=== PATIENT | female | born 1950 | race Caucasian/White ===

== ENCOUNTER 2021-10-24 10:47 | Emergency (ER) | payer MEDICARE, SELFPAY ==
[2021-10-24 11:30] VITALS: BP 146/73; PULSE 78; RESP 21; TEMP 37.3; O2SAT 97; BMI 35.9
--- NOTE | 2021-10-24 11:52 | HMH.EDUTC ---
[facility] [place] Impression: Viral syndrome, Exposure to COVID-19 virus Pharyngitis Qualifiers: Pharyngitis/tonsillitis etiology: unspecified etiology Qualified Code(s): J02.9 - Acute pharyngitis, unspecified Disposition: Home, Self-Care Condition on Discharge: Good Instructions: DI for Pharyngitis/Tonsillopharyngitis -- Adult, DI for COVID-19 (Suspected or Confirmed ), Preventing the Spread of Coronavirus Discharge Instructions Additional Instructions: Drink plenty of fluids. Take tylenol or ibuprofen for pain or fever. Take the medications as directed. Follow up with your regular doctor. GO TO THE ER FOR ANY WORSENING SYMPTOMS Quarantine until you know the results of your covid-19 test. Notify your school or workplace of your results and follow their instructions regarding return to work/school. Prescriptions: Benzonatate [Benzonatate 100mg cap] 100 mg PO TIDP PRN #30 cap PRN Reason: Cough Transmission Status: Received by [facility] predniSONE [Prednisone 20mg Tab] 20 mg PO BID 3 Days #6 tab Transmission Status: Received by [facility] Azithromycin [Z-Ajay 250mg Tab*] 250 mg PO UD DOSE PK #6 tab Transmission Status: Received by [facility] Referrals: Cassidy Paez [Primary Care Provider] - Time of Disposition: 12:21 Medical Decision Making - Medical Records Medical records reviewed: No: I reviewed the patient's medical records. - Cesar Inquiry Pt receiving controlled substance: No Vital Signs: 10/24/21 11:30 10/24/21 12:25 Temperature 99.2 F 99.2 F Temperature Source Oral Pulse Rate 78 Pulse Rate [Right Brachial] 78 Respiratory Rate 21 21 Blood Pressure 146/73 H Blood Pressure [Right Arm] 146/73 H Blood Pressure Mean [Right Arm] 97 Blood Pressure Source [Right Arm] Automatic Cuff Blood Pressure Position [Right Arm] Sitting 02 Sat by Pulse Oximetry 97 Oxygen Delivery Method Room Air - Lab Data Lab results reviewed: Yes: I reviewed the patient's lab results. Lab Results 10/24/21 11:33: Group A Strep Rapid Negative Orders (Tests/Meds): ORDERS Category Date Time Status Covid-19 Nasal PCR ([facility]) Routine Lab 10/24/21 11:32 Received Strep Screen Confirmation Stat Micro 10/24/21 11:33 [place] [facility] [place] - General Stated complaint: covid exposure, symptoms, loss of voice Time Seen by Provider: 10/24/21 11:52 Mode of Arrival: Ambulatory Source of Information: Patient Limitations: No Limitations Description of Symptoms (Recalled from Triage Doc. by RN): PATIENT C/O FEVER, SORE THROAT, CONGESTION, HEADACHE, AND COUGH SINCE YESTERDAY. HAD COVID LAST WEEK HEENT Symptoms (Recalled from RN notes): Yes Resp Symptoms (Recalled from RN notes): Yes Skin Symptoms (Recalled from RN notes): No MS Symptoms (Recalled from RN notes): No Functional Status (Recalled from RN notes): WNL - History of Present Illness Provider Complaint: She states that for the past 3 days she has had a scratchy sore throat, a dry cough, voice hoarsness and she has felt bad. She denies fever/chills/body ache/chest congestion. Her had covid-19 last week and she has been around him a lot. She has been fully vaccinated for covid and she has had a flu shot this season. - Related Data Home Medications Medication Instructions Recorded Confirmed Aspirin [Aspirin 81mg chewable 81 mg PO DAILY 10/24/21 10/24/21 tab] Losartan Potassium [Cozaar 50mg 50 mg PO DAILY 10/24/21 10/24/21 Tablets] Previous Rx's Medication Instructions Recorded Azithromycin [Z-Ajay 250mg Tab*] 250 mg PO UD DOSE PK #6 tab 10/24/21 Benzonatate [Benzonatate 100mg 100 mg PO TIDP PRN #30 cap 10/24/21 cap] predniSONE [Prednisone 20mg 20 mg PO BID 3 Days #6 tab 10/24/21 Tab] Allergies Allergy/AdvReac Type Severity Reaction Status Date / Time No Known Allergies Allergy Verified 10/24/21 11:48 - Worker's Comp Is this a Wo
[2021-10-24 11:58] LABS: Strep Scrn Group A (Rapid) Negative (Negative)
[2021-10-24 12:25] VITALS: BP 146/73; PULSE 78; RESP 21; TEMP 37.3; O2SAT 97
== END 2021-10-24 12:28 | disposition home or self-care (01) ==
PROVIDERS: Emergency Provider Nurse Practitioner Family; PCP Family Medicine
DX: U07.1 COVID-19 (principal); J02.9 Acute pharyngitis, unspecified
CPT/HCPCS: G0463; 87430; 99203; C9803; U0003; U0005

== ENCOUNTER 2023-12-04 16:51 | Emergency (ER) | payer MEDICARE, SELFPAY ==
[2023-12-04 17:45] VITALS: BP 161/73; PULSE 76; RESP 20; TEMP 37.2; O2SAT 96; BMI 35.9
[2023-12-04 18:01] LABS: Influenza A, PCR Not Detected (NotDetected); Influenza B, PCR Not Detected (NotDetected)
--- NOTE | 2023-12-04 18:10 | EXP.UTC ---
Discharge Plan Prescriptions Prescriptions: No Action losartan 50 MG tablet 50 mg PO DAILY aspirin 81 MG tablet,chewable 81 mg PO DAILY azithromycin 250 MG tablet 250 mg PO UD DOSE PK Qty: 6 0RF Rx Instructions: Take two (2) tablets today, then one (1) tablet days #2 thru #5 prednisone 20 MG tablet 20 mg PO BID 3 Days Qty: 6 0RF benzonatate 100 MG capsule 100 mg PO TIDP PRN (Reason: Cough) Qty: 30 0RF Referrals Follow up/Referrals: Provider,Referral, [Primary Care Provider] - See instructions Activity Restrictions/Add. Instructions Additional Instructions/Restrictions: *Monitor Temp, Over the counter Motrin or Tylenol as directed/as needed Tylenol every 4 hours and Motrin every 6 hours (as long as your family doctor has told you that you can take it) for fever or pain. and straight to ER if unable to lower temp less than 101.0 after medication given *Warm salt water gargles may help to soothe the throat *Throat Lozenges? *Warm fluids like tea with honey may help to soothe the throat? *Sleep elevated *Humidifier/Vaporizer *Flonase 2 sprays in each nostril daily but be aware that it may take 2-3 days before you notice improvement *Bromfed may cause drowsiness. Know how it effects you (your child) before driving, caring for small child, or sending your child to school. Not other antihistamines/allergy medications while taking bromfed Your throat swab was sent for culture. Those results are typically sent to your primary care. Be sure to follow up in 2-3 days with your family doctor/primary care physician if no improvement so they can review those result and treat if necessary. If you don?t have a primary care doctor, I recommend you get one but in the mean time, you will have to return to a walk in clinic Follow up IMMEDIATELY for new or worsening symptoms or no Noticeable improvement over the next 48-72 hours. 911 for difficulty breathing or swallowing You were tested for today for COVID19 your test result should be back in the next couple hours, you may check your results on the [facility] Clinical Impressions Clinical Impression: Viral syndrome Instructions Patient Instructions: DI for Viral Syndrome Discharge ED Provider: Luh Briscoe [facility] [place] HPI General Stated complaint: fever,sore throat,runny nose Mode of Arrival: Ambulatory Source of Information: Patient Limitations: No Limitations Time Seen by Provider: 12/04/23 18:10 Description of Symptoms (Recalled from Triage Doc. by RN): PATIENT C/O SCRATCHY THROAT, COUGH, AND FEVER SINCE YESTERDAY. REPORTS A POSITIVE AT HOME COVID TEST HEENT Symptoms (Recalled from RN notes): Yes Resp Symptoms (Recalled from RN notes): Yes Skin Symptoms (Recalled from RN notes): No MS Symptoms (Recalled from RN notes): No Functional Status (Recalled from RN notes): WNL History of Present Illness Provider Complaint: Patient states that she started feeling bad yesterday States that she has been having sore throat, fever and cough States she took an at home COVID test this morning and it was positive and she wanted to get one here to make sure she did it right Related Data Home Medications Medication Instructions Recorded Confirmed aspirin 81 mg chewable tablet 81 mg PO DAILY Heart disease 10/24/21 10/24/21 losartan 50 mg tablet 50 mg PO DAILY Hypertension 10/24/21 10/24/21 Previous Rx's Medication Instructions Recorded azithromycin 250 mg tablet 250 mg PO UD DOSE PK #6 tabs 10/24/21 benzonatate 100 mg capsule 100 mg PO TIDP PRN Cough #30 caps 10/24/21 prednisone 20 mg tablet 20 mg PO BID 3 days #6 tabs 10/24/21 Allergies Allergy/AdvReac Type Severity Reaction Status Date / Time No Known Allergies Allergy Verified 10/24/21 11:48 Worker's Comp Is this a Worker's Comp case?: No [facility] Disclaimer: The information contained in this section may have been updated after the patient was seen, as this information can be updated by other users. Social History Smoking Status: Unknown if ever smoked alcohol intake: never current occupational status: other Travel in the last 8 weeks: None ROS Obtained: Yes All systems reviewed & no additional complaints except as documented and Yes Systems reviewed as appropriate & no additional complaints except as documented Constitutional Constitutional: Reports system reviewed and no additional complaints, except as documented, Reports as per HPI, Reports body ache and Reports fever(s) ENT Ears, Nose, Mouth, and Throat: Reports system reviewed and no additional complaints, except as documented, Reports as per HPI, Reports nasal congestion, Reports nasal discharge and Reports sore throat Cardiovascular Cardiovascular: Reports system reviewed and no additional complaints, except as documented and Reports as per HPI Respiratory Respiratory: Reports system reviewed and no additional complaints, except as documented, Reports as per HPI and Reports cough Gastrointestinal Gastrointestingal: Reports system reviewed and no additional complaints, except as documented and as per HPI Physical Exam General General appearance: alert and in no apparent distress Respiratory Respiratory exam: Present normal lung sounds bilaterally; Absent respiratory distress or wheezes Cardiovascular Cardiovascular exam: Present regular rate, normal rhythm and normal heart sounds Abdominal Exam Abdominal exam: Present soft and normal bowel sounds; Absent distention or tenderness Neurological Exam Neurological exam: Present alert, oriented X3 and normal gait Medical Decision Making Cesar Inquiry Pt receiving controlled substance: No Cesar was queried for this patient: No Vital Signs: 12/04/23 17:45 Temperature 98.9 F Temperature Source Oral Pulse Rate [Left Brachial] 76 Respiratory Rate 20 Blood Pressure [Left Arm] 161/73 H Blood Pressure Mean [Left Arm] 102 Blood Pressure Source [Left Arm] Automatic Cuff Blood Pressure Position [Left Arm] Sitting 02 Sat by Pulse Oximetry 96 Oxygen Delivery Method Room Air Lab Data Lab results reviewed: Yes I reviewed the patient's lab results. Orders (Tests/Meds): ORDERS Category Date Time Status Rapid PCR Covid and Flu A/B Stat Lab 12/04/23 17:54 Received
[2023-12-04 18:23] LABS: Coronavirus 19, PCR Detected (NotDetected)
[2023-12-04 18:28] VITALS: BP 161/73; PULSE 76; RESP 20; TEMP 37.2; O2SAT 96
== END 2023-12-04 18:39 | disposition home or self-care (01) ==
PROVIDERS: Emergency Provider Nurse Practitioner
DX: U07.1 COVID-19 (principal); R50.9 Fever, unspecified; R05.9 Cough, unspecified; R07.0 Pain in throat
CPT/HCPCS: 87636; 99212; 99214; G0463

== ENCOUNTER 2025-08-12 09:15 | Outpatient (CLI) | payer MEDICARE, SELFPAY ==
[2025-08-12 14:52] LABS: Coronavirus 19, PCR Not Detected (NotDetected); Influenza A, PCR Not Detected (NotDetected); Influenza B, PCR Not Detected (NotDetected)
== END 2025-08-12 23:59 ==
LOC: LAB.DROPOF 08-16 09:16
PROVIDERS: Visit Provider Nurse Practitioner
DX: J06.9 Acute upper respiratory infection, unspecified (principal)
CPT/HCPCS: 87631